=== PATIENT | female | born 1985 | race Caucasian/White ===

== ENCOUNTER 2023-11-17 08:21 | Outpatient (CLI) | payer BC, SELFPAY | END 2023-11-17 08:22 | disposition home or self-care (01) | LOC: NFLDREF 12-05 21:34 | PROVIDERS: PCP Internal Medicine; Referring Provider Internal Medicine; Visit Provider Internal Medicine | DX: R73.03 Prediabetes (principal); Z13.220 Encounter for screening for lipoid disorders | CPT/HCPCS: 80061; 82947 ==

== ENCOUNTER 2025-03-29 07:49 | Outpatient (CLI) | payer BC, SELFPAY | END 2025-03-29 07:50 | disposition home or self-care (01) | LOC: NFLDREF 03-31 12:01 | PROVIDERS: PCP Internal Medicine; Referring Provider Internal Medicine; Visit Provider Internal Medicine | DX: Z00.00 Encounter for general adult medical examination without abnormal findings (principal); R73.03 Prediabetes | CPT/HCPCS: 80061; 82947 ==

== ENCOUNTER 2025-06-12 14:26 | Outpatient (CLI) | payer BC, SELFPAY ==
--- NOTE | 2025-06-12 14:45 | CRLHL7_ITS ---
For Patients: As a result of the Century Cures Act, medical imaging exams and procedure reports are released immediately into your electronic medical record. You may view this report before your referring provider. If you have questions, please contact your health care provider. OB ULTRASOUND FIRST TRIMESTER TRANSVAGINAL INDICATION: Dating, viability. TECHNIQUE: Real time rodriguez scale imaging of the fetus was performed. Transvaginal imaging performed. LMP: 04/05/2025. JAMARCUS by LMP: 01/10/2026. GA: 9 w, 5 d. Previous US: No. CRL: ? cm. FHR: N/A. Gestational sac: 1.2 cm. Appears within normal limits. Less than 10 percent. Yolk sac: ? mm. Right ovary: Within normal limits. 2.1 x 1.8 x 2.4 cm. Left ovary: N/V. IMPRESSION: Intrauterine gestational sac measures 1.2 cm, 6 weeks 0 days. No pole or yolk sac. Follow-up in 11-14 days recommended. Jakob Comer M.D. Diagnostic Radiologist [email or web address] SP/Dictated by: Jakob Comer MD @ 06/12/2025 3:52:00 PM (Electronically Signed)
== END 2025-06-12 14:27 | disposition home or self-care (01) ==
LOC: US 14:27
PROVIDERS: PCP Internal Medicine; Visit Provider Physician Assistant
DX: Z36.89 Encounter for other specified antenatal screening (principal); Z3A.08 8 weeks gestation of pregnancy
CPT/HCPCS: 76817

== ENCOUNTER 2025-06-20 12:18 | Emergency (ER) | payer BC, SELFPAY ==
[2025-06-20 12:38] VITALS: BP 133/94; PULSE 111; RESP 20; TEMP 37.2; O2SAT 98; BMI 41.5
--- NOTE | 2025-06-20 12:58 | ED_ITS ---
HPI - General Chief complaint: Vaginal Bleeding Stated complaint: Miscarriage Time Seen by Provider: 06/20/25 12:48 History of Present Illness HPI Narrative: This 39-year-old female comes in reporting vaginal bleeding and cramping that started last evening and worsened significantly today. She states that she thinks she is about 10 weeks . She went to a clinic appointment about a week ago and ultrasound showed a at more like 6 weeks of gestation so there was concern about viability of this . The patient does report some occasions of lightheadedness. She does arrive here with reassuring vital signs but does have increased heart rate at 111 beats per minute on arrival. Related Data Home Medications ?Medication ?Instructions ?Recorded ?Confirmed docosahexaenoic acid 200 mg mg PO 06/12/25 06/12/25 capsule ( DHA) Previous Rx's ?Medication ?Instructions ?Recorded sertraline 50 mg tablet 50 mg PO DAILY #90 tabs 12/21 tirzepatide 2.5 mg/0.5 mL 2.5 mg (0.5 mL) subcut QWEEK #2 mL 04/03/25 subcutaneous pen injector Held on 06/20/25. Instructions: Doctor's Order tirzepatide (weight loss) 2.5 2.5 mg (0.5 mL) subcut Q WEEK #2 mL 05/04/25 mg/0.5 mL subcutaneous pen injector (Zepbound) Held on 06/20/25. Instructions: Doctor's Order Allergies Allergy/AdvReac Type Severity Reaction Status Date / Time adhesive Allergy Mild Rash Verified 06/12/25 15:00 Review of Systems Status of ROS: Reports: 10 or more systems reviewed and unremarkable except as noted in History and below Narrative: Constitutional: No fevers, no weight gain or loss. Eyes: No discharge. No vision changes. HENT: No congestion, no sore throat, no ear pain. Cardiovascular: No chest pain, no palpitations. Respiratory: No shortness of breath, no wheezes, no cough. Gastrointestinal: No vomiting, no diarrhea. Genitourinary: No dysuria, no hematuria. Vaginal bleeding and uterine cramping. Musculoskeletal: Normal range of motion. Skin: No rashes, no pruritis. Neurological: No dizziness, weakness, sensory change, speech change. Endo/Heme/Allergies: No bruising or bleeding. No polydipsia. Pysch: no suicidality, no anxiety, no insomnia. All other systems reviewed and are negative. [facility] Medical History Major depressive disorder ?F32.9 - Major depressive disorder, single episode, unspecified (ICD-10) Pre-diabetes ?R73.03 - Prediabetes (ICD-10) Surgical History History of laparoscopic cholecystectomy (04/25/13) ?Z90.49 - Acquired absence of other specified parts of digestive tract (ICD- 10) Social History What is your current living situation?: I presently have a place to live Problems where you live: no known problems In the past 12 months, utilities in danger of being shut off: no In past 12 months, lack of transportation kept you from medical appts, meetings, work, or getting things needed for daily living: no In the past 12 mos, have been you worried that your food would run out before you had money to buy more?: never true In the past 12 mos, the food you bought just didn't last and you didn't have money to buy more?: never true Smoking Status: Never smoker How often do you have a drink containing alcohol: never AUDIT-C Alcohol total score: 0 Non-prescribed substance use: denies use How often does anyone, including family, friends and others, physically hurt you : never How often does anyone, including family, friends and others, insult or talk down to you: never How often does anyone, including family, friends and others, threaten you with harm: never How often does anyone, including family, friends and others, scream or curse at you: never Exam Narrative: Exam Narrative: Constitutional: Well-developed, well-nourished, no acute distress. HEENT: Normocephalic, atraumatic. Neck: Normal range of motion. Nontender. Supple. Heart: Regular. No murmurs. Normal rate. Intact distal pulses. Lungs: Clear to auscultation. No chest discomfort. No wheezes, rhonchi, or rales. Abdomen: Normal bowel sounds. No rebound tenderness. Genitalia: Deferred. Back: No midline tenderness. Normal range of motion. Extremities: Normal range of motion. No injury. Skin: Intact. No rash. Warm. No erythema or pallor. Neurologic: No altered sensation. No weakness. Alert and oriented. Psychiatric: No suicidality. No anxiety or depression. No insomnia. Nursing notes and vitals signs are reviewed. Const: Vital Signs, click to edit/add: Vital Signs - 24 hr 06/20/25 12:38 06/20/25 15:00 06/20/25 15:49 Temperature 98.9 F Pulse Rate [Pulse Oximeter] 111 H 89 83 Respiratory Rate 20 22 20 Blood Pressure [Ri ght Upper Arm] 133/94 H 144/86 H 130/88 Pulse Oximetry 98 99 100 Oxygen Delivery Me thod Room Air Room Air 06/20/25 17:00 Temperature Pulse Rate [Pulse Oximeter] 88 Respiratory Rate 20 Blood Pressure [Ri ght Upper Arm] 140/98 H Pulse Oximetry 98 Oxygen Delivery Me thod Course Vital Signs Vital signs: Initial Vital Signs Temperature 98.9 F 06/20/25 12:38 Temperature Source Temporal Artery Scan 06/20/25 12:38 Pulse Rate 111 H 06/20/25 12:38 Respiratory Rate 20 06/20/25 12:38 Blood Pressure 133/94 H 06/20/25 12:38 Blood Pressure Mean 107 H 06/20/25 12:38 Blood Pressure Position Sitting 06/20/25 12:38 Pulse Oximetry 98 06/20/25 12:38 Oxygen Delivery Method Room Air 06/20/25 12:38 Vital Signs Temperature 98.9 F 06/20/25 12:38 Pulse Rate 111 H 06/20/25 12:38 Respiratory Rate 20 06/20/25 12:38 Blood Pressure 133/94 H 06/20/25 12:38 Pulse Oximetry 98 06/20/25 12:38 Oxygen Delivery Method Room Air 06/20/25 12:38 Temperature 98.9 F 06/20/25 12:38 Pulse Rate 88 06/20/25 17:00 Respiratory Rate 20 06/20/25 17:00 Blood Pressure 140/98 H 06/20/25 17:00 Pulse Oximetry 98 06/20/25 17:00 Oxygen Delivery Method Room Air 06/20/25 15:00 Medications Administered Medications: Discontinued Medications Generic Name Dose Route Start Last Admin Trade Name Brianna PRN Reason Stop Dose Admin Sodium Chloride 1,000 mls @ 1,000 mls/hr 06/20/25 13:00 06/20/25 15:48 0.9 % Sodium Chloride 1000 Ml IV 06/20/25 13:59 Infused .Q1H KAITLYNN Infusion Sodium Chloride 1,000 mls @ 1,000 mls/hr 06/20/25 15:30 06/20/25 17:05 0.9 % Sodium Chloride 1000 Ml IV 06/20/25 16:29 Infused .Q1H KAITLYNN Infusion MDM - OB/Uterine Contractions MDM Narrative Medical decision making narrative: This patient reports that she is approximately 10 weeks but was aware for from a ultrasound done about a week ago that there was likely an impending miscarriage to happen. She began having significant bleeding and cramping today. She had some lightheadedness with the heavy bleeding. She arrives here with normal vital signs. I did order an IV with fluids. She received a total of 2 L of normal saline. Her hemoglobin returns a bit low at a just above 11. She has blood type at O positive. The patient was able to take food and did get up toward the end of her stay here stating that she feels better and does not have lightheadedness. She also seems to believe that the rate of bleeding has significantly decreased. Lab Data Labs: Lab Results 06/20/25 Range/Units 13:05 WBC 11.57 H (4.50-11.00) K/uL RBC 3.74 L (4.00-5.20) m/uL Hgb 11.4 L (12.0-16.0) gm/dL Hct 34.3 (33.0-51.0) % MCV 92 (80-100) fL MCH 31 (26-34) pg MCHC 33 (32-36) gm/dL RDW Coeff of Sonny 12.7 (11.5-15.5) % Plt Count 182 (140-440) K/uL Neut % (Auto) 73.3 H (42.0-72.0) % Lymph % (Auto) 19.1 L (20-44) % Harris % (Auto) 5.4 (0.0-11.0) % Eos % (Auto) 1.7 (0.0-7.0) % Baso % (Auto) 0.3 (0.0-3.0) % Neut # (Auto) 8.50 H (1.7-7.0) K/uL Lymph # (Auto) 2.20 (0.90-2.90) K/uL Harris # (Auto) 0.60 (0.00-0.90) K/UL Eos # (Auto) 0.20 (0.00-0.50) K/uL Baso # (Auto) 0.00 (0.00-0.30) K/uL Abs Immat Gran (auto) 0.00 (0.00-0.30) K/uL Imm/Tot Granulo (auto) 0.2 % Blood Type O Positive Imaging Data US - abdomen: Radiologist's impression: No living intrauterine with overall findings concerning for spontaneous in progress. Based on the 8-day interval between ultrasound examinations, early normal remains a consideration but is deemed less likely. Continued beta HCG and ultrasound follow-up may be performed as indicated. Discharge Plan Discharge Clinical Impression: Miscarriage Patient Disposition: Home w/ Parent or Adult Condition: Stable Additional Instructions: Take frequent fluids and use [id number] medicines as needed and directed. Follow-up with OB clinic for ongoing management. Return if symptoms are persistent or worsening. Prescriptions: No Action sertraline 50 mg tablet 50 mg PO DAILY Qty: 90 3RF tirzepatide 2.5 mg/0.5 mL pen injector 2.5 mg subcut QWEEK Qty: 2 0RF Rx Instructions: for 4 weeks Zepbound 2.5 mg/0.5 mL pen injector 2.5 mg subcut QWEEK Qty: 2 1RF DHA 200 mg capsule PO Follow Up/Referrals: Erika Soriano MD [Primary Care Provider, Internal Medicine] Stand Alone Forms: [employer] Info Instructions
[2025-06-20 13:24] LABS: Hematocrit* 34.3 % (33.0-51.0); Hemoglobin* 11.4 gm/dL (12.0-16.0); Immature Granulocytes Pct Auto 0.2 %; Mean Corpuscular HGB Conc 33 gm/dL (32-36); Mean Corpuscular Hemoglobin 31 pg (26-34); Mean Corpuscular Volume 92 fL (80-100); RDW Coefficient of Variation % 12.7 % (11.5-15.5); Red Blood Count* 3.74 m/uL (4.00-5.20); White Blood Count* 11.57 K/uL (4.50-11.00)
[2025-06-20 13:25] LABS: Immature Granulocytes Abs Auto 0.00 K/uL (0.00-0.30); Lymphocytes Absolute Auto 2.20 K/uL (0.90-2.90); Slide Review Reflex No
--- NOTE | 2025-06-20 14:22 | CRLHL7_ITS ---
For Patients: As a result of the Cures Act, medical imaging exams and procedure reports are released immediately into your electronic medical record. You may view this report before your referring provider. If you have questions, please contact your health care provider. INDICATION: Heavy bleeding with clots and cramping. TECHNIQUE: Transvaginal OB pelvic ultrasound. COMPARISON: Ultrasound 06/12/2025. FINDINGS: There is an irregular intrauterine gestational sac with foci of rounded increased echogenicity concerning for blood products in the lower uterine segment. Suspected yolk sac is normal in size. An apparent pole is present measuring 4 mm which corresponds to 6 weeks 1 day. No heart tones demonstrated. Uterus as imaged is otherwise unremarkable. Bilateral ovaries are not visualized on this exam. Bilateral adnexal regions as imaged are unremarkable. No free fluid evident. IMPRESSION: No living intrauterine with overall findings concerning for spontaneous in progress. Based on the 8-day interval between ultrasound examinations, early normal remains a consideration but is deemed less likely. Continued beta HCG and ultrasound follow-up may be performed as indicated. Dictated by Karlos Thornton MD @ 06/20/2025 4:13:07 PM Dictated by: Karlos Thornton MD @ 06/20/2025 16:13:45 (Electronically Signed)
[2025-06-20 15:00] VITALS: BP 144/86; PULSE 89; RESP 22; O2SAT 99
[2025-06-20 15:49] VITALS: BP 130/88; PULSE 83; RESP 20; O2SAT 100
[2025-06-20 17:00] VITALS: BP 140/98; PULSE 88; RESP 20; O2SAT 98
== END 2025-06-20 18:21 | disposition home or self-care (01) ==
PROVIDERS: Emergency Provider Emergency Medicine Emergency Medical Services; PCP Internal Medicine
DX: O03.9 Complete or unspecified spontaneous abortion without complication (principal)
CPT/HCPCS: 36415; 76817; 85025; 86900; 86901; 96360; 96361; 99284; J7030

== ENCOUNTER 2025-06-26 16:12 | Outpatient (CLI) | payer BC, SELFPAY | END 2025-06-26 16:13 | disposition home or self-care (01) | LOC: NFLDREF 16:13 | PROVIDERS: PCP Internal Medicine; Visit Provider Physician Assistant | DX: O03.9 Complete or unspecified spontaneous abortion without complication (principal) | CPT/HCPCS: 84702 ==